=== PATIENT | female | born 1950 | race African-American/Black ===

== ENCOUNTER 2017-06-06 14:05 | Inpatient (IN) | payer MEDICARE, MEDICAID ==
[~2017-06-06] VITALS: Ht 160 cm; Wt 61.7 kg
[~2017-06-06 14:05] MED LIST: ASPI-1158 PO; CHOLESTEROL MEDS; FISH; TYLENOL; [UNRECOGNIZED DRUG - REMARK]
[2017-06-06] MEDS ORDERED: SODIUM CHLORIDE 0.9% 1,000 ML IV ONE (14:41)
[2017-06-06 15:04] LABS: CHLORIDE 98 mEq/L (98-107)
[2017-06-06 15:07] LABS: D-DIMER 2.04 mg/L FEU (<0.50); INR 1.1; PROTHROMBIN TIME 11.2 sec (9.4-11.6)
[2017-06-06 15:11] LABS: BASOPHILS % 0.5 % (0.0-2.0); LYMPHOCYTES % 13.5 % (20.0-50.0); MEAN CORPUSCULAR HEMOGLOBIN 33.3 pg (28.0-32.0); MEAN CORPUSCULAR VOLUME 99.9 fL (81.0-99.0); MEAN PLATELET VOLUME 8.3 fl (7.4-10.4); MONOCYTES % 9.2 % (2.0-8.0); NEUTROPHILS % 76.8 % (40.0-76.0); PLATELET 172 x1000/uL (130-400); RED CELL DISTRIBUTION WIDTH 17.5 % (11.6-14.6)
[2017-06-06 15:14] LABS: CARBON DIOXIDE 19 mEq/L (21-32); ETHANOL BLOOD < 10 mg/dL; TROPONIN I < 0.02 ng/mL (0.00-0.04)
[2017-06-06] MEDS ORDERED: DEXTROSE 50% WATER 50ML SYRINGE IV ONE (15:45)
[2017-06-06] MEDS ORDERED: LORAZEPAM 2MG/ML CPJ IV ONE (16:00)
[2017-06-06 16:44] LABS: CLARITY URINE CLOUDY (CLEAR); COLOR URINE YELLOW (YELLOW); GLUCOSE URINE NEGATIVE (NEGATIVE); KETONES URINE 1+ (NEGATIVE); LEUKOCYTE ESTERASE URINE 3+ (NEGATIVE); NITRITE URINE POSITIVE (NEGATIVE); OCCULT BLOOD URINE TRACE (NEGATIVE); PROTEIN URINE 2+ (NEGATIVE); SPECIFIC GRAVITY URINE 1.011 (1.005-1.030); UROBILINOGEN URINE 0.2 E.U./dL (0.2-1.0)
[2017-06-06 17:02] LABS: *AMPHETAMINES SCREEN URINE NEGATIVE (NEGATIVE); *BARBITURATES SCREEN URINE NEGATIVE (NEGATIVE); *BENZODIAZEPINES SCREEN URINE NEGATIVE (NEGATIVE); *COCAINE SCREEN URINE NEGATIVE (NEGATIVE); CANNABINOID URINE SCREEN NEGATIVE (NEGATIVE); METHADONE URINE SCREEN NEGATIVE (NEGATIVE); OPIATES URINE SCREEN NEGATIVE (NEGATIVE); PHENCYCLIDINE URINE SCREEN NEGATIVE (NEGATIVE)
[2017-06-06] MEDS ORDERED: ATOR-2 PO (19:16)
[2017-06-06] MEDS ORDERED: AMLO10TA80 PO (19:16)
[2017-06-06] MEDS ORDERED: LOSA25TA12 PO (19:16)
[2017-06-06 20:02] VITALS: BP 128/56
[2017-06-06 20:09] VITALS: BP 128/56
[2017-06-06] MEDS ORDERED: MAGNESIUM/ALUMINUM HYDROXIDE/SIMETHICONE 30ML UDC PO PRN (21:30)
[2017-06-06] MEDS ORDERED: ACETAMINOPHEN 325MG TABLET PO PRN (21:30)
[2017-06-06] MEDS ORDERED: DIPHENHYDRAMINE 50MG/ML VIAL IV PRN (21:30)
[2017-06-06] MEDS ORDERED: CLONIDINE 0.1MG TABLET PO PRN (21:30)
[2017-06-06] MEDS ORDERED: IPRATROPIUM/ALBUTEROL 0.5-3(2.5)MG/3ML NEB INH PRN (21:30)
[2017-06-06] MEDS ORDERED: ONDANSETRON HCL 4MG/2ML VIAL IV PRN (21:30)
[2017-06-06] MEDS ORDERED: GUAIFENESIN 200MG/10ML SUGAR FREE UDC PO PRN (21:30)
[2017-06-06] MEDS: SODIUM CHLORIDE 0.9% INJ 3ML FLUSH IVF SCH (21:44)
[2017-06-06] MEDS: DEXT 5%/0.45% NACL 1000ML 1,000 ML IV SCH (21:44)
[2017-06-07 00:30] VITALS: BP 140/54
[2017-06-07 04:00] VITALS: BP 129/61
[2017-06-07] MEDS: SODIUM CHLORIDE 0.9% INJ 3ML FLUSH IVF SCH ×3 (05:44→21:13)
[2017-06-07] MEDS: DEXT 5%/0.45% NACL 1000ML 1,000 ML IV SCH ×2 (05:44→17:18)
[2017-06-07 08:00] VITALS: BP 138/62
[2017-06-07] MEDS: LOSARTAN POTASSIUM 25 MG TABLET PO SCH (09:08)
[2017-06-07] MEDS: AMLODIPINE 10MG TABLET PO SCH (09:08)
[2017-06-07] MEDS: ASPIRIN 81MG EC TABLET PO SCH (09:08)
[2017-06-07 12:00] VITALS: BP 120/60
[2017-06-07 16:00] VITALS: BP 153/63
[2017-06-07 20:21] VITALS: BP 149/62
[2017-06-07] MEDS ORDERED: TEMAZEPAM 15MG CAPSULE PO PRN (20:45)
[2017-06-07] MEDS ORDERED: METHYLPREDNISOLONE SOD SUCC 40 MG/ML VIAL IV NR (21:00)
[2017-06-07] MEDS: ATORVASTATIN CALCIUM 40MG TABLET PO SCH (21:13)
[2017-06-07] MEDS: COLCHICINE 0.6MG TABLET PO SCH (21:13)
[2017-06-08 00:05] VITALS: BP 130/63
[2017-06-08] MEDS: DEXT 5%/0.45% NACL 1000ML 1,000 ML IV SCH ×2 (02:20→13:18)
[2017-06-08 04:00] VITALS: BP 129/63
[2017-06-08] MEDS: SODIUM CHLORIDE 0.9% INJ 3ML FLUSH IVF SCH ×3 (05:24→21:54)
[2017-06-08 08:00] VITALS: BP 148/72
[2017-06-08] MEDS: LOSARTAN POTASSIUM 25 MG TABLET PO SCH (08:30)
[2017-06-08] MEDS: AMLODIPINE 10MG TABLET PO SCH (08:30)
[2017-06-08] MEDS: THIAMINE HCL 100MG TABLET PO SCH (08:30)
[2017-06-08] MEDS: COLCHICINE 0.6MG TABLET PO SCH ×2 (08:30→21:53)
[2017-06-08] MEDS: ATENOLOL 25MG TABLET PO SCH (08:31)
[2017-06-08] MEDS: ASPIRIN 81MG EC TABLET PO SCH (08:31)
[2017-06-08 09:16] LABS: HEMATOCRIT. 26.2 % (36.0-48.0); HEMOGLOBIN. 8.6 g/dL (12.0-16.0); MEAN CORPUSCULAR HEMOGLOBIN 32.8 pg (28.0-32.0); MEAN CORPUSCULAR VOLUME 100.1 fL (81.0-99.0); MEAN PLATELET VOLUME 8.4 fl (7.4-10.4); PLATELET 159 x1000/uL (130-400); RED BLOOD CELL COUNT 2.62 mill/uL (4.2-5.4); RED CELL DISTRIBUTION WIDTH 17.4 % (11.6-14.6)
[2017-06-08] MEDS ORDERED: CALCIUM CHLORIDE 1,000 MG in DEXT 5% WATER 90 ML IV SCH (10:45)
[2017-06-08] MEDS ORDERED: POTASSIUM CHLORIDE 20MEQ TABLET SR PO SCH ×2 (11:00→20:45)
[2017-06-08] MEDS ORDERED: MAGNESIUM 4 G PREMIX 100 ML IV SCH (11:30)
[2017-06-08 11:37] LABS: PLATELET ESTIMATE NORMAL
[2017-06-08 12:00] VITALS: BP 126/58
[2017-06-08 16:00] VITALS: BP 129/63
[2017-06-08] MEDS: POTASSIUM CHLORIDE 20MEQ TABLET SR PO SCH ×2 (16:27→19:00)
[2017-06-08 20:00] VITALS: BP 122/56
[2017-06-08] MEDS: ATORVASTATIN CALCIUM 40MG TABLET PO SCH (21:53)
[2017-06-09] VITALS: BP 132/62
[2017-06-09 05:30] LABS: HEMATOCRIT. 22.9 % (36.0-48.0); HEMOGLOBIN. 7.6 g/dL (12.0-16.0); MEAN CORPUSCULAR HEMOGLOBIN 33.5 pg (28.0-32.0); MEAN CORPUSCULAR VOLUME 101.5 fL (81.0-99.0); MEAN PLATELET VOLUME 8.2 fl (7.4-10.4); PLATELET 155 x1000/uL (130-400); RED BLOOD CELL COUNT 2.26 mill/uL (4.2-5.4); RED CELL DISTRIBUTION WIDTH 17.2 % (11.6-14.6)
[2017-06-09 06:27] LABS: CARBON DIOXIDE 20 mEq/L (21-32); CHLORIDE 110 mEq/L (98-107)
[2017-06-09 06:29] LABS: PHOSPHORUS 2.3 mg/dL (2.5-4.9)
[2017-06-09] MEDS: SODIUM CHLORIDE 0.9% INJ 3ML FLUSH IVF SCH ×2 (06:50→11:06)
[2017-06-09] MEDS: DEXT 5%/0.45% NACL 1000ML 1,000 ML IV SCH ×2 (06:50→09:18)
[2017-06-09 08:00] VITALS: BP 134/62
[2017-06-09] MEDS ORDERED: CALCIUM CARBONATE/VITAMIN D3 500MG TABLET PO SCH (09:00)
[2017-06-09] MEDS: AMLODIPINE 10MG TABLET PO SCH (09:10)
[2017-06-09] MEDS: ATENOLOL 25MG TABLET PO SCH (09:10)
[2017-06-09] MEDS: ASPIRIN 81MG EC TABLET PO SCH (09:10)
[2017-06-09] MEDS: LOSARTAN POTASSIUM 25 MG TABLET PO SCH (09:10)
[2017-06-09] MEDS: THIAMINE HCL 100MG TABLET PO SCH (09:10)
[2017-06-09] MEDS: COLCHICINE 0.6MG TABLET PO SCH (09:10)
[2017-06-09] MEDS ORDERED: CALCIUM CHLORIDE 1,000 MG in DEXT 5% WATER 90 ML IV NR (10:30)
[2017-06-09 12:00] VITALS: BP 138/60
[2017-06-09 16:00] VITALS: BP 139/58
[2017-06-09] MEDS ORDERED: CYANOCOBALAMIN 1000MCG/ML VIAL IM NR (16:15)
[2017-06-09 23:21] LABS: PLATELET ESTIMATE NORMAL
== END 2017-06-09 17:32 | disposition home or self-care (01) | DRG 74 ==
LOC: ER 14:20 → 7WST 17:15 → EDBEDREQ 17:21 → ENRESERV 17:27
PROVIDERS: ADMIT Internal Medicine; ATTEND Internal Medicine
DX: G90.8 Other disorders of autonomic nervous system (principal); N17.9 Acute kidney failure, unspecified; E11.649 Type 2 diabetes mellitus with hypoglycemia without coma; E87.8 Other disorders of electrolyte and fluid balance, not elsewhere classified; E83.51 Hypocalcemia; I49.9 Cardiac arrhythmia, unspecified; D64.9 Anemia, unspecified; R00.0 Tachycardia, unspecified; E61.1 Iron deficiency; I10 Essential (primary) hypertension; M10.9 Gout, unspecified; M19.90 Unspecified osteoarthritis, unspecified site; E78.00 Pure hypercholesterolemia, unspecified; F41.9 Anxiety disorder, unspecified; Z82.49 Family history of ischemic heart disease and other diseases of the circulatory system; Z83.3 Family history of diabetes mellitus; Z90.49 Acquired absence of other specified parts of digestive tract; Z90.710 Acquired absence of both cervix and uterus; Z88.8 Allergy status to other drugs, medicaments and biological substances; Z79.899 Other long term (current) drug therapy; Z79.82 Long term (current) use of aspirin
CPT/HCPCS: 36415; 70450; 71010; 78582; 80048; 80053; 80305; 81001; 82270; 82962; 83540; 83550; 83735; 83880; 84100; 84443; 84484; 84550; 85025; 85379; 85610; 93005; 93970; 96361; 96374; 96375; 99285; A9558; G0482; J2060; J2920; J3475; J3490; J7030; J7060

== ENCOUNTER 2018-02-08 17:08 | Emergency (ER) | payer MEDICARE, MEDICAID ==
[~2018-02-08] VITALS: Ht 157.5 cm; Wt 61.0 kg
[~2018-02-08 17:08] MED LIST changes: +AMLO10TA80 PO; +ATOR-2 PO; +CALC1TAB99 PO; -CHOLESTEROL MEDS; +CYAN10009 PO; +FERR325T6 PO; -FISH; +LOSA25TA12 PO; +MULT-1146 PO; +OMEG1CAP46 PO; -TYLENOL; -[UNRECOGNIZED DRUG - REMARK]
[2018-02-09] MEDS ORDERED: LIDOCAINE 5% PATCH TOP SCH (01:00)
[2018-02-09] MEDS ORDERED: PREDNISONE 20MG TABLET PO ONE (04:00)
[2018-02-09] MEDS ORDERED: KETOROLAC 60MG/2ML VIAL IM ONE (04:00)
[2018-02-09] MEDS ORDERED: NAPROXEN 500MG TABLET PO ONE (05:30)
[2018-02-09 05:45] VITALS: BP 140/50
== END 2018-02-09 05:47 | disposition home or self-care (01) ==
LOC: ER 18:46
DX: M25.571 Pain in right ankle and joints of right foot (principal); M10.9 Gout, unspecified; I10 Essential (primary) hypertension; Z79.82 Long term (current) use of aspirin; Z90.710 Acquired absence of both cervix and uterus; Z90.49 Acquired absence of other specified parts of digestive tract; Z88.8 Allergy status to other drugs, medicaments and biological substances
CPT/HCPCS: 73610; 93971; 99284; J7512; J1885